=== PATIENT | female | born 1965 | race Caucasian/White ===

== ENCOUNTER 2022-01-31 06:26 | Day surgery (SDC) | payer OTHER, SELFPAY ==
--- NOTE | 2022-01-30 14:01 | P.CONAN_ITS ---
Documented by User: Annalee Greco NP 01/30/22 14:02 HPI - Anesthesia Eval Consult details Narrative: 56yo F for Upper Endoscopy and Colonoscopy [facility] Past Medical History Medical History Anxiety IBS (irritable bowel syndrome) Indeterminate colitis Migraine headache Smoker Surgical History Surgical History History of esophagogastroduodenoscopy (EGD) History of total hip replacement Hx of colonoscopy Social History Social History Patient Tobacco Use Status: Current everyday Tobacco user Tobacco use type: Cigarette Are you DNR?: No Advance Directives: No Advance Directives Information Provided: Yes Recently lost weight without trying: Yes Meds Allergies Allergy/AdvReac Type Severity Reaction Status Date / Time Penicillins [PCN] Allergy Unknown SWELLING, Verified 01/31/22 06:23 ITCHY, HIVES Sulfa (Sulfonamide Allergy Unknown SWOLLEN, Verified 01/31/22 06:21 Antibiotics) ITCHY, [SULFA (SULFONAMIDE HIVES ANTIBIOTICS)] Home Medications Medication Instructions Recorded Confirmed Last Taken Type adalimumab 40 mg/0.8 mL 40 mg subcut Q2W 01/26/22 01/26/22 01/22/22 History subcutaneous pen kit (Humira Pen) [id number] 1 cap PO Q4-6H PRN Migraine 01/26/22 01/26/22 01/30/22 History 50 mg-300 mg-40 mg capsule Headache cholecalciferol (vitamin D3) 50 50 mcg PO DAILY 01/26/22 01/26/22 01/29/22 History mcg (2,000 unit) capsule (Vitamin D3) cyanocobalamin (vitamin B-12) 1,000 mcg Q4W 01/26/22 01/31/22 01/20/22 History 1,000 mcg tablet diphenoxylate-atropine 2.5 1 tab PO DAILY 01/26/22 01/26/22 01/30/22 History mg-0.025 mg tablet folic acid 1 mg tablet 1 mg PO DAILY 01/26/22 01/26/22 01/30/22 History lorazepam 0.5 mg tablet 0.5 mg PO BID PRN Anxiety 01/26/22 01/26/22 01/29/22 History mesalamine 0.375 gram 1.5 g PO DAILY 01/26/22 01/26/22 01/30/22 History capsule,extended release 24 hr (Apriso) methocarbamol 750 mg tablet 750 mg PO TID 01/26/22 01/26/22 12/31/21 History omeprazole 40 mg capsule,delayed 40 mg PO DAILY 01/26/22 01/26/22 01/30/22 History release ondansetron HCl 4 mg tablet 4 mg PO Q6H PRN Nausea And Vomiting 01/26/22 01/26/22 01/28/22 History sucralfate 1 gram tablet 1 g PO BID 01/26/22 01/26/22 01/30/22 History Exam Exam Date and Time: January 30, 2022 140 Assessment and Plan Assessment Anesthesia Assessment: Chart Reviewed Documented by User: Ivis Perez MD 01/31/22 08:14 PMFSH Active Problems Active Problems: Cachectic Smoker Denies DIOINSIO Past Medical History Medical History Anxiety IBS (irritable bowel syndrome) Indeterminate colitis Migraine headache Smoker Family History Family history of problems with anesthesia: No Surgical History Surgical History History of esophagogastroduodenoscopy (EGD) History of total hip replacement Hx of colonoscopy History of Problems with Anesthesia: No Social History Social History Patient Tobacco Use Status: Current everyday Tobacco user Tobacco use type: Cigarette Are you DNR?: No Advance Directives: No Advance Directives Information Provided: Yes Recently lost weight without trying: Yes Meds Allergies Allergy/AdvReac Type Severity Reaction Status Date / Time Penicillins [PCN] Allergy Unknown SWELLING, Verified 01/31/22 06:23 ITCHY, HIVES Sulfa (Sulfonamide Allergy Unknown SWOLLEN, Verified 01/31/22 06:21 Antibiotics) ITCHY, [SULFA (SULFONAMIDE HIVES ANTIBIOTICS)] Home Medications Medication Instructions Recorded Confirmed Last Taken Type adalimumab 40 mg/0.8 mL 40 mg subcut Q2W 01/26/22 01/26/22 01/22/22 History subcutaneous pen kit (Humira Pen) [id number]-rpztmyxxtpmfj-daoguhui 1 cap PO Q4-6H PRN Migraine 01/26/22 01/26/22 01/30/22 History 50 mg-300 mg-40 mg capsule Headache cholecalciferol (vitamin D3) 50 50 mcg PO DAILY 01/26/22 01/26/22 01/29/22 History mcg (2,000 unit) capsule (Vitamin D3) cyanocobalamin (vitamin B-12) 1,000 mcg Q4W 01/26/22 01/31/22 01/20/22 History 1,000 mcg tablet diphenoxylate-atropine 2.5 1 tab PO DAILY 01/26/22 01/26/22 01/30/22 History mg-0.025 mg tablet folic acid 1 mg tablet 1 mg PO DAILY 01/26/22 01/26/22 01/30/22 History lorazepam 0.5 mg tablet 0.5 mg PO BID PRN Anxiety 01/26/22 01/26/22 01/29/22 History mesalamine 0.375 gram 1.5 g PO DAILY 01/26/22 01/26/22 01/30/22 History capsule,extended release 24 hr (Apriso) methocarbamol 750 mg tablet 750 mg PO TID 01/26/22 01/26/22 12/31/21 History omeprazole 40 mg capsule,delayed 40 mg PO DAILY 01/26/22 01/26/22 01/30/22 History release ondansetron HCl 4 mg tablet 4 mg PO Q6H PRN Nausea And Vomiting 01/26/22 01/26/22 01/28/22 History sucralfate 1 gram tablet 1 g PO BID 01/26/22 01/26/22 01/30/22 History Exam Height,Weight and Vital Signs: Height 5 ft 6 in Weight 42.638 kg Vital Signs Temp Pulse Resp BP Pulse Ox O2 Del Method 01/31/22 06:30 98.1 F 77 16 112/56 L 96 Room Air Airway Mallampati Class: III TM Dist: >3cm Neck ROM: Full Denture: Upper Loose/Missing/Broken Teeth: Yes (Bottom teeth implants. No broken or loose) Heart: RRR Lungs: CTAB Assessment and Plan Assessment Anesthesia Assessment: Anesthesia Plan Discussed Final Anesthetic Review Family History of Problems with Anesthesia: No History of Problems with Anesthesia: No NPO: Yes ASA Class: II Final Preanesthetic Review: No Changes in Pt Med Stat, Meds/Allgs Chart Reviewed, Consent Obtained/Reviewed and Anes Risks/Benef Reviewed Patient Risk: Low Procedure Risk: Low Assessment/Block/Sedation in SS: Assess/Block/Sedation-SS Anesthetic Plan Anesthetic Plan: MAC: Disposition: Standard PACU
[2022-01-31 06:30] VITALS: BP 112/56; PULSE 77; RESP 16; TEMP 36.7; O2SAT 96; BMI 15.1
[2022-01-31] MEDS: Lactated Ringers 1,000 ML 100 ML IVCONT (06:59)
--- NOTE | 2022-01-31 07:27 | MHC.SHP ---
Pre-Procedural Eval Section A Date of Service: 01/31/22 Section B Chief Complaint: colitis,weldon's esophagus Details of Present Illness: see H&P, no changes Relevant Family History (Specify if Yes): No Relevant Social History: None Present Medications: see Short Stay Collaborative assessment Medical History: No relevant PMH History of Previous Operations: No relevant previous surgery Allergies: Allergies Allergy/AdvReac Type Severity Reaction Status Date / Time Penicillins [PCN] Allergy Unknown SWELLING, Verified 01/31/22 06:23 ITCHY, HIVES Sulfa (Sulfonamide Allergy Unknown SWOLLEN, Verified 01/31/22 06:21 Antibiotics) ITCHY, [SULFA (SULFONAMIDE HIVES ANTIBIOTICS)] Review of Systems Sugical H&P ROS: Negative: Constitution, Cardiovascular, Respiratory, Neurological, Psychiatric, Hem-Onc, Allergic/Immunologic, Gastrointestinal, Genitourinary, Musculoskeletal, Integumentary, Endocrine and Eyes/Ears/Nose/Throat Exam Surgical H&P Exam: Normal: HEENT, Normal: Heart, Normal: Lungs, Normal: Extremities, Normal: Abdomen, Normal: Skin and Normal: Neurological Plan Diagnosis/Plan: Unchanged I have reviewed the history and physical and performed a pertinent physical examination on my patient. No changes have occurred unless specified.
--- NOTE | 2022-01-31 08:22 | PM.OP ---
Brief Operative Note Date of Service: 01/31/22 Pre-op diagnosis: barretts, colitis Post-op diagnosis: same Procedure: egd colon Surgeon: Roberto Brown Anesthesia: MAC Was an Merchandise Pickup/Receiving Associate used for this Procedure?: No Estimated blood loss (mL): 5 Pathology: other Condition: stable Disposition: PACU
[2022-01-31 08:24] VITALS: BP 110/57; PULSE 75; RESP 16; TEMP 36.1; O2SAT 100
--- NOTE | 2022-01-31 08:34 | OP_ITS ---
SURGEON: Roberto Brown MD INDICATIONS: 1. Ramos esophagus. 2. Indeterminate colitis. PREOPERATIVE DIAGNOSIS: POSTOPERATIVE DIAGNOSIS: PROCEDURE PERFORMED: ESTIMATED BLOOD LOSS: COMPLICATIONS: ANESTHESIA: ASSISTANTS: SPECIMENS: PROCEDURES: Upper endoscopy with biopsy and colonoscopy to the terminal ileum with biopsy on01/31/22. MEDICATIONS: Monitored anesthesia care. DESCRIPTION OF PROCEDURE: History and physical performed. The risks and benefits of the procedure were explained to the patient. Informed consent was obtained. The patient was placed in a left lateral decubitus position. The Olympus videogastroscope was introduced into the esophagus, stomach, and duodenum. Examination was performed. The scope was removed. She was repositioned for colonoscopy. A digital rectal exam was performed and it was found to be normal. The Olympus pediatric videocolonoscope was introduced into the rectum and advanced to the cecum without difficulty. The cecum was identified by transillumination, palpation, and identification of ileocecal valve. Examination was performed and the scope was removed. She tolerated the procedure well and was taken to Recovery in stable condition. FINDINGS: Upper endoscopy: 1. Esophagus: The esophagus showed changes of esophageal candidiasis with white material coating the mucosa. Biopsies were obtained from the midesophagus and from the EG junction. The EG junction was slightly irregular. There were no raised lesions or ulcerated areas. 2. Stomach: The stomach showed a linear 20 mm x 5 to 10 mm ulcer superficial in the antrum with no stigmata of recent hemorrhage. This was biopsied and the antral biopsies were obtained. 3. Duodenum: The bulb and second portion were normal. COLONOSCOPY: The terminal ileum was not examined. There was a large amount of liquid stool and some undigested vegetable material, which clogged the scope making the procedure extended time-calderon. Biopsies were obtained beginning in the right colon and extending to the rectum. There appeared to be some mild edema and erythema consistent with her diagnosis of indeterminate colitis. There was no active ulceration in the colon. No polyps were identified, although the exam was limited by the poor prep. Retroflexed examination showed some internal hemorrhoids. IMPRESSION: 1. Gastric ulcer. 2. Ramos esophagus. 3. Esophageal candidiasis. 4. Colitis. RECOMMENDATION: Follow up the biopsy results. MD KYLIE Hoffman/[employer] / [id number] YONATHAN
[2022-01-31 08:39] VITALS: BP 117/62; PULSE 72; RESP 18; TEMP 36.4; O2SAT 100
== END 2022-01-31 09:01 | disposition home or self-care (01) ==
PROVIDERS: PCP Family Medicine; Visit Provider Internal Medicine Gastroenterology
PROC: (CPT 45380; principal; 2022-01-31 07:30)
DX: K52.9 Noninfective gastroenteritis and colitis, unspecified (principal); K64.8 Other hemorrhoids; K22.70 Barrett's esophagus without dysplasia; K25.9 Gastric ulcer, unspecified as acute or chronic, without hemorrhage or perforation; B37.81 Candidal esophagitis; F41.1 Generalized anxiety disorder; Z79.899 Other long term (current) drug therapy; F17.210 Nicotine dependence, cigarettes, uncomplicated
CPT/HCPCS: 45380; 43239; 88305; 88312; 88342